=== PATIENT | male | born 1995 | race Caucasian/White ===

== ENCOUNTER 2017-02-05 05:00 | Inpatient (IN) | payer OTHER ==
[~2017-02-05] VITALS: Ht 182.9 cm; Wt 68.5 kg
--- NOTE | ~2017-02-05 | HP ---
Unit #: [id number] #: [id number] Patient: DANIEL STUBBS [id number] [facility] [address] [place] [address] [id number] MR#: [id number] NAME: DANIEL STUBBS ROOM: P208 Age: 21 Sex: M Admission Date: 02/05/2017 : 1995 Attending Physician: Ramirez Khoury M.D. Admitting Physician: Ramirez Khoury M.D. Primary Care Physician: Primary Care Physician No HISTORY AND PHYSICAL HISTORY OF PRESENT ILLNESS Daniel is a 21-year-old male admitted on 02/05/2017 for detox from heroin. He also has history of bipolar disorder and schizophrenia. PAST MEDICAL HISTORY GERD. PAST SURGICAL HISTORY Right hand fracture with surgical repair. Smokes 1 pack cigarette daily. Denies alcohol use and heroin use. He is currently single and homeless. FAMILY HISTORY Noncontributory. REVIEW OF SYSTEMS CONSTITUTIONAL: No fever or chills. HEENT: Denies any sore throat, ear pain or runny nose. CARDIOVASCULAR: Denies chest pain, irregular heart rhythm or palpitations. CHEST: Denies shortness of breath or cough. No hemoptysis. GASTROINTESTINAL: Denies nausea, vomiting, diarrhea or chronic constipation. ENDOCRINE: Denies history of increased thirst or urination. No recent significant weight loss or gain. GENITOURINARY: Denies dysuria, frequency, or hematuria. SKIN: Denies any rashes. HEMATOLOGIC: Denies history of increased bleeding or bruising. MUSCULOSKELETAL: Denies any hot, swollen joints. No generalized muscle pain. NEUROLOGIC: Denies problems with vision or speech. No frequent, severe headaches. No numbness, tingling or weakness in any extremities. Denies loss of bladder or bowel control. CURRENT MEDICATIONS Divalproex sodium, Prozac, Vistaril, and Zyprexa. ALLERGIES Haldol. PHYSICAL EXAMINATION GENERAL: Alert, oriented, no acute distress. VITAL SIGNS: Blood pressure 123/82, heart rate 88, respirations 16, and temperature 97.6. HEIGHT: 6 feet 0 inches. Unit #: [id number] #: [id number] Patient: DANIEL STUBBS WEIGHT: 151 pounds. SKIN: Warm, dry. No rashes or lesions, track omer, cuts, etc. HEENT: Normocephalic. TMs not viewed. Oronasal passages clear. Conjunctivae clear. PERRLA. EOM is intact. NECK: No lymphadenopathy or thyromegaly. HEART: Regular rate and rhythm. No murmur, gallop, or rub. LUNGS: Clear to auscultation bilaterally. ABDOMEN: Soft, nontender without palpable masses or hepatosplenomegaly. : Not assessed. EXTREMITIES: No evidence of cyanosis, clubbing, or edema. Moves all extremities independently without obvious deficit. NEUROLOGICAL: Grossly within normal limits. Cranial Nerves: II: Visual farmer are intact. III, IV AND : Extraocular movements are intact. Pupils are equal, round and reactive to light. V: Facial sensation is grossly normal. VII: Facial movements and expression are normal. VIII: Auditory acuity grossly intact. IX, X: Uvula is midline. Phonation is normal. XI: Patient shrugs shoulders and turns head normally. XII: Tongue protrudes in the midline. Sensory and Motor Function: Sensory and motor sensation is grossly normal. Motor: moves all extremities well. Coordination: Gait is normal. Deep Tendon Reflexes: Intact. IMPRESSION 1. Psychiatric admission. 2. Gastroesophageal reflux disease. RECOMMENDATIONS PSYCHIATRIC: Per psychiatrist. MEDICAL: No contraindication to participating in this facility's activities. MEDICAL PROGNOSIS Good. MEDICAL CONDITION Stable. Dictated by..Varsha Parra TD: 02/05/2017 15:09 JOB #: [id number] Unit #: [id number] #: [id number] Patient: DANIEL STUBBS HISTORY AND PHYSICAL Page 1 of 1 X TOÑA LANDA APRN HISTORY AND PHYSICAL
--- NOTE | ~2017-02-05 | PA ---
Unit #: [id number] #: [id number] Patient: KEITH STUBBS [id number] [facility] [address] [place] [address] [id number] MR#: [id number] NAME: KEITH STUBBS ROOM: P208 Age: 21 Sex: M Admission Date: 02/05/2017 : 1995 Date of Assessment: 02/05/2017 Attending Physician: Ramirez Khoury M.D. Admitting Physician: Ramirez Khoury M.D. Primary Care Physician: Primary Care Physician No PSYCHIATRIC ASSESSMENT IDENTIFYING INFORMATION The patient is a 21-year-old white male admitted after he had presented to [facility] claiming to be suicidal. CHIEF COMPLAINT None given. INFORMANT(S) Chart. Patient cannot be aroused for interview. HISTORY OF PRESENT ILLNESS The patient is a 21-year-old white male who has recently become homeless. He is reporting 1-month history of abuse of heroin. The patient also reports a history of cannabis use. He had reported positive suicidal thoughts related to his homelessness. He has stated to staff that he has no intention of working towards sobriety and was simply "tired of living in his car." When seen today, the patient cannot be aroused for interview. He does have a list of medications ordered which were allegedly prescribed at [facility]. These include Depakote, Prozac, Vistaril, and Zyprexa. PAST PSYCHIATRIC HISTORY As above. PAST MEDICAL HISTORY Noncontributory. MEDICATIONS Depakote, Prozac, Vistaril, and Zyprexa. ALLERGIES None reported. FAMILY HISTORY Not obtained. SOCIAL HISTORY The patient is apparently homeless and reports substance use as noted previously. MENTAL STATUS EXAMINATION Examination at this time reveals the patient to be a soundly sleeping white male. Attempts to arouse the patient are unsuccessful. Unit #: [id number] #: [id number] Patient: KEITH STUBBS ASSETS AND LIABILITIES The patient's assets are to be assessed. Liabilities: Lack of resources. DIAGNOSTIC IMPRESSION 1. Opioid use disorder. 2. Mood disorder unspecified. TREATMENT PLAN The patient remains hospitalized for safety and stabilization. Suicide precautions remain in place, and we will start previously prescribed medications. The patient will participate in appropriate order of milieu activities. ESTIMATED LENGTH OF STAY 3 to 4 days. Dictated by... Renetta Garza TD: 02/05/2017 12:39 JOB #: [id number] PSYCHIATRIC ASSESSMENT Page 1 of 1 X Ramirez Khoury MD X PSYCHIATRIC ASSESSMENT
--- NOTE | ~2017-02-05 | DS ---
Unit #: [id number] #: [id number] Patient: KEITH STUBBS [id number] [facility] [address] [place] [address] [id number] MR#: [id number] NAME: KEITH STUBBS ROOM: P208 Age: 21 Sex: M Admission Date: 02/05/2017 : 1995 Discharge Date: 02/07/2017 Attending Physician: Ramirez Khoury M.D. Primary Care Physician: Primary Care Physician No DISCHARGE SUMMARY JOB NOTE: VERIFY ADT. VERIFY AGE. REASON FOR ADMISSION The patient is a 21-year-old white male, admitted reporting abuse of heroin and homelessness. HOSPITAL COURSE The patient was admitted to the [address] [place] [address] unit and placed on suicide precautions. On 02/06, the patient did awaken for evaluation. He stated at that point that he wished to restart the previously prescribed medications including Prozac, Depakote, and Zyprexa which he stated had been started at [facility] secondary to a diagnosis of a bipolar spectrum disorder. This physician did not necessarily feel as though the patient was presenting with a history consistent with that disorder; however, the patient was insistent that these medications be started and after discussion of the risks and benefits of these medications as described in yesterday's note, the patient was restarted on the medications. By 02/07 the patient was in bright spirits. He reported to staff that he had absolutely no intention of stopping his heroin use and that he had mainly come to the hospital secondary to his homeless status and his wish to get refills on his previous psychotropic medications. As per his request, discharge was ordered on 02/07/2017. At that time, the patient denied suicidal or homicidal ideation and exhibited no signs or symptoms of withdrawal. FINAL DIAGNOSES Opioid use disorder; bipolar disorder, unspecified, per patient history. DISPOSITION ON DISCHARGE The patient is discharged on the following medications Depakote 250 mg t.i.d. for mood stabilization, Prozac 10 mg daily for depression, Zyprexa 10 mg at bedtime p.r.n. insomnia, Vistaril 25 mg q.6 hours p.r.n. anxiety. DISCHARGE INSTRUCTIONS No dietary or physical restrictions were placed upon the patient at time of discharge. FOLLOWUP Followup will take place through the auspices of [facility]. PROGNOSIS Unit #: [id number] #: [id number] Patient: KEITH STUBBS The patient's prognosis is considered guarded. ADDENDUM The patient's Zyprexa is ordered for mood stabilization, not insomnia as noted previously and will be given on a scheduled basis. Dictated by... Ramirez Khoury M.D. CB/veronica TD: 02/09/2017 07:06 JOB #: [id number] DISCHARGE SUMMARY Page 1 of 1 X Ramirez Khoury MD X DISCHARGE SUMMARY
[2017-02-06 11:36] LABS: ALBUMIN SERUM 3.8 g/dL (3.5-5.0); BILIRUBIN,TOTAL 0.9 mg/dL (0.2-2.0); BUN/CREATININE RATIO 11.25; CREATININE SERUM 0.8 mg/dL (0.6-1.4); GLOM FILT RATE Estimated 126.9 mL/min (>60); PROTEIN TOTAL SERUM 6.4 g/dL (6.0-8.3)
[2017-02-06 11:57] LABS: BASOPHIL% 0.6 % (0-2.5); EOSINOPHIL# 0.1 X10e3 (0-0.7); EOSINOPHIL% 1.1 % (0.0-7.0); HEMATOCRIT 45.1 % (38.0-50.0); LYMPHOCYTE% 60.4 % (17.0-45.0); MEAN CELL VOLUME 82.2 FL (83-96); MEAN CORPUSCULAR HEMOGLOBIN 27.4 PG (28-34); MEAN CORPUSCULAR HGB CONC 33.3 g/dL (30-36); MEAN PLATELET VOLUME 9.4 FL (6.5-11.5); MONOCYTE# 0.6 X10e3 (0-1.0); MONOCYTE% 9.8 % (3.0-12.0); NEUTROPHIL# 1.8 X10e3 (1.5-7.1); NEUTROPHIL% 28.1 % (40-75); PLATELET COUNT 174 X10e3 (140-420); RED BLOOD COUNT 5.48 X10e (3.90-5.60); RED CELL DISTRIBUTION WIDTH 13.7 % (11.0-15.5); WHITE BLOOD COUNT 6.5 X10e3 (4.0-10.5)
[2017-02-06 11:58] LABS: DIFF IND YES
[2017-02-06 12:21] LABS: PLATELET ESTIMATE NORMAL (NORMAL); RBC NORMAL YES
[2017-02-07 09:48] LABS: URINE APPEARANCE CLEAR; URINE BILIRUBIN NEG (NEG); URINE BLOOD NEG (NEG); URINE COLOR YELLOW; URINE GLUCOSE NEG (NEG); URINE KETONE NEG (NEG); URINE LEUKOCYTE ESTERASE NEG (NEG); URINE NITRATE NEG (NEG); URINE PROTEIN NEG (NEG); URINE SPECIFIC GRAVITY 1.022 (1.003-1.035); URINE UROBILINOGEN 0.2 MG/DL (NEG)
[2017-02-07 09:56] LABS: CULTURE INDICATED? NO
[2017-02-07 10:09] LABS: AMPHETAMINE NEG (NEG); BARBITURATES NEG (NEG); BENZODIAZEPINES NEG (NEG); COCAINE NEG (NEG); MARIJUANA NEG (NEG); OPIATES NEG (NEG); TRICYCLIC ANTIDEPRESSANTS NEG (NEG); U METHADONE NEG (NEG)
== END 2017-02-07 14:27 | disposition home or self-care (01) | DRG 897 ==
LOC: P2S 08:31
PROVIDERS: Specialist
PROC: HZ2ZZZZ Detoxification Services for Substance Abuse Treatment (ICD-10-PCS; principal; 2017-02-05)
DX: F11.10 Opioid abuse, uncomplicated (principal); F39 Unspecified mood [affective] disorder; K21.9 Gastro-esophageal reflux disease without esophagitis; F17.210 Nicotine dependence, cigarettes, uncomplicated
CPT/HCPCS: 80053; 80164; 80307; 81003; 82140; 85025; 86592